=== PATIENT | male | born 1980 | race Caucasian/White ===

== ENCOUNTER 2017-10-23 11:26 | Emergency (ER) | payer OTHER ==
[2017-10-23 11:30] VITALS: BP 149/94; PULSE 105; RESP 18; TEMP 98.5
--- NOTE | 2017-10-23 11:49 | ED ---
ENT HPI - General Chief complaint: ENT Stated complaint: Sore Throat Time Seen by Provider: 10/23/17 11:32 Source: patient, RN notes reviewed Mode of arrival: ambulatory Limitations: no limitations - History of Present Illness Initial comments: 37-year-old male presents to the ER for chief complaint sore throat 3 days. Progressively getting worse. She patient states his lymph nodes are swollen and feels agrees with 20 swallowing that he has no difficulty swallowing. He's been using salt water gargles [id number] analgesics with no relief. Patient reports fever 101 at home earlier. Patient denies any chest pain or shortness of breath no rhinorrhea or ear pain at this time. - Related Data Home Medications Medication Instructions Recorded Confirmed HYDROcodone/APAP 5-325MG [Severance 5] 1 each PO Q4HR PRN 08/19/14 10/23/17 Omeprazole [PriLOSEC] 40 mg PO [id number] 08/19/14 10/23/17 Previous Rx's Medication Instructions Recorded ALPRAZolam [Xanax] 0.5 mg PO Q8HR PRN #10 tablet 08/19/14 Amoxicillin 500 mg PO Q8H #30 capsule 10/23/17 Allergies Allergy/AdvReac Type Severity Reaction Status Date / Time No Known Allergies Allergy Verified 10/23/17 11:30 Review of Systems ROS Statement: Those systems with pertinent positive or pertinent negative responses have been documented in the HPI. ROS Other: All systems not noted in ROS Statement are negative. Past Medical History Past Medical History: No Reported History History of Any Multi-Drug Resistant Organisms: MRSA Date of last positivie culture/infection: 2004 MDRO Source:: finger Past Surgical History: No Surgical Hx Reported Past Psychological History: Anxiety Smoking Status: Current every day smoker Past Alcohol Use History: None Reported Past Drug Use History: Marijuana General Exam Limitations: no limitations General appearance: alert, in no apparent distress Head exam: Present: atraumatic, normocephalic, normal inspection Eye exam: Present: normal appearance, PERRL, EOMI. Absent: scleral icterus, conjunctival injection, periorbital swelling ENT exam: Present: mucous membranes moist, TM's normal bilaterally, normal external ear exam. Absent: normal oropharynx (Posterior pharynx erythematous) Neck exam: Present: normal inspection, full ROM, lymphadenopathy. Absent: tenderness, meningismus Respiratory exam: Present: normal lung sounds bilaterally. Absent: respiratory distress, wheezes, rales, rhonchi, stridor Cardiovascular Exam: Present: regular rate, normal rhythm, normal heart sounds. Absent: systolic murmur, diastolic murmur, rubs, gallop, clicks Course Vital Signs 10/23/17 11:27 Temperature 98.5 F Pulse Rate 105 H Respiratory 18 Rate Blood Pressure 149/94 O2 Sat by Pulse 97 Oximetry Medical Decision Making - Medical Decision Making 37-year-old male presented from for sore throat. Patient has sharp pharyngitis clinically. Patient has fever at home multiple lymph nodes and pharynx is erythematous. Patient was started on penicillin advise use [id number] analgesics sober gargles and return for any worsening symptoms. Disposition Clinical Impression: Streptococcal sore throat Disposition: HOME SELF-CARE Condition: Stable Instructions: Strep Throat (ED) Additional Instructions: Please return to the Emergency Department if symptoms worsen or any other concerns. Prescriptions: Amoxicillin 500 mg PO Q8H #30 capsule Is patient prescribed a controlled substance at d/c from ED?: No Referrals: None,Stated [Primary Care Provider] - 1-2 days
== END 2017-10-23 11:55 | disposition home or self-care (01) ==
LOC: EC 11:26
DX: J02.0 Streptococcal pharyngitis (principal); F17.200 Nicotine dependence, unspecified, uncomplicated; Z86.14 Personal history of Methicillin resistant Staphylococcus aureus infection; Z79.899 Other long term (current) drug therapy
CPT/HCPCS: 99282